=== PATIENT | female | born 1955 | race Caucasian/White ===

== ENCOUNTER 2017-08-25 17:38 | Emergency (ER) | payer SELFPAY ==
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
[2017-08-25 18:18] LABS: Hematocrit 42 % (35-47); Hemoglobin 13.9 g/dl (12.0-16.0); Mean Corpuscular HGB Conc 33 g/dl (31-36); Mean Corpuscular Hemoglobin 30 pg (27-31); Mean Corpuscular Volume 89 fL (80-97); Mean Platelet Volume 9 um3 (7.4-10.4); Red Blood Count 4.67 10^6/ul (4.0-5.4); Red Cell Distribution Width 14 % (10.5-15); White Blood Count 6.3 10^3/ul (3.5-10.8)
[2017-08-25 18:35] LABS: Albumin 4.2 g/dL (3.2-5.2); BUN/Creatinine Ratio 13.6 (8-20); Calcium 9.7 mg/dL (8.6-10.3); EGFR African American 83.7 (>60); EGFR Non-African American 65.1 (>60); Globulin 3.3 g/dL (2-4); Potassium 3.8 mmol/L (3.5-5.0); Total Bilirubin 0.5 mg/dL (0.2-1.0); Total Protein 7.5 g/dL (6.4-8.9)
[2017-08-25] MEDS ORDERED: Iohexol 300* (CONTRAST) 10 ML SDV IV ONE (18:38)
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
[2017-08-25] MEDS ORDERED: Cyclobenzaprine TAB* 10 MG PO ONE (20:22)
[2017-08-25] MEDS ORDERED: Acetaminophen TAB* 325 MG PO ONE (20:34)
[2017-08-25] MEDS ORDERED: NS 0.9% 1000 ML* 1,000 ML IV ONE (20:35)
[2017-08-25] MEDS ORDERED: Acetaminophen TAB* 325 MG ONE (20:38)
[2017-08-25 21:53] VITALS: BP 114/60
== END 2017-08-25 21:59 | disposition home or self-care (01) ==
LOC: ED 17:38
DX: S42.002A Fracture of unspecified part of left clavicle, initial encounter for closed fracture (principal); Z87.891 Personal history of nicotine dependence; V03.99XA Pedestrian with other conveyance injured in collision with car, pick-up truck or van, unspecified whether traffic or nontraffic accident, initial encounter; Y93.55 Activity, bike riding
CPT/HCPCS: 36415; 70450; 71260; 72125; 74177; 80053; 85025; 96360; 96374; 99285; A9270-GY; Q9967

== ENCOUNTER 2017-11-10 15:53 | Emergency (ER) | payer BC, OTHER ==
[2017-11-10] MEDS ORDERED: NS 0.9% 1000 ML*IV.FLUID IV ONE (17:47)
[2017-11-10] MEDS ORDERED: Ondansetron INJ* 2 MG/ML VIAL IV ONE (17:48)
[2017-11-10] MEDS ORDERED: Acetaminophen TAB* 325 MG PO ONE (17:48)
--- NOTE | 2017-11-10 18:17 | RAD ---
INDICATION: Cough COMPARISON: None TECHNIQUE: PA and lateral dual-energy views were obtained. FINDINGS: Bones/Soft Tissues: There are no acute bony findings. Cardiomediastinal: The cardiomediastinal silhouette is normal. Lungs: There are no infiltrates. Pleura: There are no pleural effusions. Other: None IMPRESSION: NO ACTIVE DISEASE.
[2017-11-10 18:30] LABS: Hematocrit 42 % (35-47); Hemoglobin 14.2 g/dl (12.0-16.0); Mean Corpuscular HGB Conc 34 g/dl (31-36); Mean Corpuscular Hemoglobin 30 pg (27-31); Mean Corpuscular Volume 89 fL (80-97); Mean Platelet Volume 9 um3 (7.4-10.4); Red Blood Count 4.74 10^6/ul (4.0-5.4); Red Cell Distribution Width 14 % (10.5-15)
[2017-11-10 18:43] LABS: Albumin 4.2 g/dL (3.2-5.2); BUN/Creatinine Ratio 15.3 (8-20); Calcium 9.1 mg/dL (8.6-10.3); EGFR African American 105.6 (>60); EGFR Non-African American 82.1 (>60); Globulin 3.3 g/dL (2-4); Potassium 3.7 mmol/L (3.5-5.0); Total Bilirubin 0.6 mg/dL (0.2-1.0); Total Protein 7.5 g/dL (6.4-8.9)
--- NOTE | 2017-11-10 19:03 | ED ---
HPI Febrile Illness - HPI Summary HPI Summary: 62F presents with fever, sore throat, and cough for two days. She states she feels nauseous so she has not taken anything for her fever. She was seen by her primary and sent here for the fever. no one else is sick. She admits to sinus congestion. She denies any chest pain or SOB. no abdominal pain, vomiting, or diarrhea. she admits to headache but denies any neck stiffness or photophobia. She is still able to swallow. no medical history. - History of Current Complaint Chief Complaint: EDGeneral Time Seen by Provider: 11/10/17 17:31 Pain Intensity: 7 - Allergy/Home Medications Allergies/Adverse Reactions: Allergies Allergy/AdvReac Type Severity Reaction Status Date / Time Ciprofloxacin Allergy Hives Verified 11/10/17 16:08 peanuts Allergy Severe Anaphylatic Uncoded 11/10/17 16:08 Shock PMH/Surg Hx/FS Hx/Imm Hx Endocrine/Hematology History: Reports: Other Endocrine/Hematological Disorders - cholecystectomy 2010 Denies: Hx Anticoagulant Therapy, Hx Diabetes - Surgical History Surgery Procedure, Year, and Place: cholecystectomy 2010 Infectious Disease History: No Infectious Disease History: Denies: Traveled Outside the [place] in Last 30 Days - Family History Known Family History: Positive: Hypertension - Social History Alcohol Use: Rare Alcohol Amount: 4 per year Substance Use Type: Reports: None Smoking Status (MU): Former Smoker Type: Cigarettes Amount Used/How Often: 1PPD Length of Time of Smoking/Using Tobacco: 15 years Have You Smoked in the Last Year: No Review of Systems Positive: Fever Positive: Sore Throat Negative: Chest Pain Positive: Cough. Negative: Shortness Of Breath All Other Systems Reviewed And Are Negative: Yes Physical Exam Triage Information Reviewed: Yes Vital Signs On Initial Exam: Initial Vitals Temp Pulse Resp BP Pulse Ox 100.0 F 102 20 104/73 97 11/10/17 16:05 11/10/17 16:05 11/10/17 16:05 11/10/17 16:05 11/10/17 16:05 Vital Signs Reviewed: Yes Appearance: Positive: Ill-Appearing Skin: Positive: Warm, Dry Head/Face: Positive: Normal Head/Face Inspection Eyes: Positive: Normal, EOMI, MARLINE, Conjunctiva Clear ENT: Positive: Normal ENT inspection, Pharyngeal erythema, TMs normal, Uvula midline, Other - soft palate symmetric. Negative: Tonsillar swelling, Tonsillar exudate, Trismus, Muffled voice Neck: Positive: Supple, Nontender, No Lymphadenopathy Respiratory/Lung Sounds: Positive: Clear to Auscultation, Breath Sounds Present Cardiovascular: Positive: Normal, RRR Abdomen Description: Positive: Nontender, Soft Bowel Sounds: Positive: Present Musculoskeletal: Positive: Normal Neurological: Positive: Normal Psychiatric: Positive: Normal - Melissa Coma Scale Coma Scale Total: 15 Diagnostics - Vital Signs Vital Signs Temp Pulse Resp BP Pulse Ox 11/10/17 17:58 96 11/10/17 17:38 98 96 11/10/17 17:37 106/66 11/10/17 16:05 100.0 F 102 20 104/73 97 - Laboratory Lab Results: Lab Results 11/10/17 11/10/17 11/10/17 Range/Units 18:04 18:14 18:17 WBC (3.5-10.8) 10^3/ul RBC (4.0-5.4) 10^6/ul Hgb (12.0-16.0) g/dl Hct (35-47) % MCV (80-97) fL MCH (27-31) pg MCHC (31-36) g/dl RDW (10.5-15) % Plt Count (150-450) 10^3/ul MPV (7.4-10.4) um3 Neut % (Auto) (38-83) % Lymph % (Auto) (25-47) % [place] % (Auto) (1-9) % Eos % (Auto) (0-6) % Baso % (Auto) (0-2) % Absolute Neuts (auto) (1.5-7.7) 10^3/ul Absolute Lymphs (auto) (1.0-4.8) 10^3/ul Absolute Monos (auto) (0-0.8) 10^3/ul Absolute Eos (auto) (0-0.6) 10^3/ul Absolute Basos (auto) (0-0.2) 10^3/ul Absolute Nucleated RBC 10^3/ul Nucleated RBC % INR (Anticoag Therapy) 0.99 (0.77-1.02) APTT 32.4 (26.0-36.3) seconds Sodium (133-145) mmol/L Potassium (3.5-5.0) mmol/L Chloride (101-111) mmol/L Carbon Dioxide (22-32) mmol/L Anion Gap (2-11) mmol/L BUN (6-24) mg/dL Creatinine (0.51-0.95) mg/dL Est GFR ( Amer) (>60) Est GFR (Non-Af Amer) (>60) BUN/Creatinine Ratio (8-20) Glucose (70-100) mg/dL Lactic Acid (0.5-2.0) mmol/L Calcium (8.6-10.3) mg/dL Total Bilirubin (0.2-1.0) mg/dL AST (13-39) U/L ALT (7-52) U/L Alkaline Phosphatase (34-104) U/L Total Protein (6.4-8.9) g/dL Albumin (3.2-5.2) g/dL Globulin (2-4) g/dL Albumin/Globulin Ratio (1-3) Influenza A (Rapid) Negative (Negative) Influenza B (Rapid) Negative (Negative) Group A Strep Rapid Negative (Negative) 11/10/17 11/10/17 11/10/17 Range/Units 18:17 18:17 18:17 WBC 11.0 H (3.5-10.8) 10^3/ul RBC 4.74 (4.0-5.4) 10^6/ul Hgb 14.2 (12.0-16.0) g/dl Hct 42 (35-47) % MCV 89 (80-97) fL MCH 30 (27-31) pg MCHC 34 (31-36) g/dl RDW 14 (10.5-15) % Plt Count 206 (150-450) 10^3/ul MPV 9 (7.4-10.4) um3 Neut % (Auto) 81.6 (38-83) % Lymph % (Auto) 13.1 L (25-47) % [place] % (Auto) 4.6 (1-9) % Eos % (Auto) 0.1 (0-6) % Baso % (Auto) 0.6 (0-2) % Absolute Neuts (auto) 9.0 H (1.5-7.7) 10^3/ul Absolute Lymphs (auto) 1.4 (1.0-4.8) 10^3/ul Absolute Monos (auto) 0.5 (0-0.8) 10^3/ul Absolute Eos (auto) 0 (0-0.6) 10^3/ul Absolute Basos (auto) 0.1 (0-0.2) 10^3/ul Absolute Nucleated RBC 0 10^3/ul Nucleated RBC % 0 INR (Anticoag Therapy) (0.77-1.02) APTT (26.0-36.3) seconds Sodium 134 (133-145) mmol/L Potassium 3.7 (3.5-5.0) mmol/L Chloride 104 (101-111) mmol/L Carbon Dioxide 23 (22-32) mmol/L Anion Gap 7 (2-11) mmol/L BUN 11 (6-24) mg/dL Creatinine 0.72 (0.51-0.95) mg/dL Est GFR ( Amer) 105.6 (>60) Est GFR (Non-Af Amer) 82.1 (>60) BUN/Creatinine Ratio 15.3 (8-20) Glucose 136 H (70-100) mg/dL Lactic Acid 0.9 (0.5-2.0) mmol/L Calcium 9.1 (8.6-10.3) mg/dL Total Bilirubin 0.60 (0.2-1.0) mg/dL AST 34 (13-39) U/L ALT 25 (7-52) U/L Alkaline Phosphatase 87 (34-104) U/L Total Protein 7.5 (6.4-8.9) g/dL Albumin 4.2 (3.2-5.2) g/dL Globulin 3.3 (2-4) g/dL Albumin/Globulin Ratio 1.3 (1-3) Influenza A (Rapid) (Negative) Influenza B (Rapid) (Negative) Group A Strep Rapid (Negative) Result Diagrams: 18 18:17 11/10/17 18:17 Lab Statement: Any lab studies that have been ordered have been reviewed, and results considered in the medical decision making process. - Radiology chest Xray Interpretation: No Acute Changes Radiology Interpretation Completed By: Radiologist Course/Dx - Course Course Of Treatment: 62F presents with fever, sore throat, and cough for two days. She states she feels nauseous so she has not taken anything for her fever. She was seen by her primary and sent here for the fever. no one else is sick. She admits to sinus congestion. She denies any chest pain or SOB. no abdominal pain, vomiting, or diarrhea. she admits to headache but denies any neck stiffness or photophobia. She is still able to swallow. no medical history. on exam pharynx red, uvula midline, soft palate symmetric. lungs CTA. labs wnl. flu neg, chest xray neg. patient understand and agrees with plan. - Febrile Illness Differential Diagnoses: Fever of Unknown Origin, Pneumonia, Viremia - Diagnoses Provider Diagnoses: Fever, Upper respiratory infection Discharge - Discharge Plan Condition: Good Disposition: HOME Prescriptions: Dexamethasone TAB* [Decadron TAB*] 4 mg PO DAILY #4 tab Magic Mouth Was-SEN/MAAL/LIDO* 5 ml SWISH SPIT QID #100 ml Ondansetron ODT TAB* [Zofran 4 MG Odt TAB*] 4 mg PO Q6H PRN #20 tab.odt PRN Reason: Nausea Patient Education Materials: Upper Respiratory Infection (ED) Referrals: Jacqui Trent MD [Primary Care Provider] - Additional Instructions: Magic mouthwash 5ml swish and spit can use 4x a day Take steroid once a day for 5 days starting tomorrow Take Tylenol or ibuprofen for fever every 6 hours Take zofran every 6 hours for nausea Can gargle salt water Follow up with primary within 5 days Return to ED if develop fever does not respond to Tylenol or ibuprofen, inability to swallow, difficulty breathing or any new or worsening symptoms
[2017-11-10] MEDS ORDERED: Dexamethasone TAB* 4 MG PO ONE (19:27)
[2017-11-10 19:36] VITALS: BP 107/64
== END 2017-11-10 19:44 | disposition home or self-care (01) ==
LOC: ED 15:53
DX: J06.9 Acute upper respiratory infection, unspecified (principal); R50.9 Fever, unspecified; Z88.1 Allergy status to other antibiotic agents; E34.9 Endocrine disorder, unspecified; D75.9 Disease of blood and blood-forming organs, unspecified; Z90.49 Acquired absence of other specified parts of digestive tract; Z87.891 Personal history of nicotine dependence
CPT/HCPCS: 36415; 71020; 80053; 83605; 85025; 85610; 85730; 87040; 87502; 87651; 96361; 96374; 99283; A9270-GY; J2405; J8540

== ENCOUNTER 2019-09-24 09:35 | Day surgery (SDC) | payer BC ==
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
--- OUTSIDE RECORDS SUMMARY | 2019-09-24 10:10 | XMS REPORT | Continuity of Care Document ---
:1955 External Reference #:[id number] Author Name Evelin Ruth N.P. (transmitted by agent of provider Taylor Gregory) Address [address], [place] [address] Care Team Providers Name Role Phone Jacqui Trent MD - Family Care Team Information Transportation Solutions Manager [phone] Medicine Problems Active Problems Provider Date Localized, primary osteoarthritis Eugene Eubanks MD Onset: 07/16/2019 Current tear of medial cartilage AND/OR meniscus Eugene Eubanks MD Onset: of knee Achilles tendinitis, left leg Eugene Eubanks MD Onset: 05/31/2019 Social History Type Date Description Comments Sex Unknown ETOH Use Denies alcohol use Tobacco Use Start: Unknown Patient has never smoked Recreational Drug Use Sporadically uses Marijuana Smoking Status Reviewed: 08/25/19 Patient has never smoked Exercise Type/Frequency Exercises regularly Allergies, Adverse Reactions, Alerts Active Allergies Reaction Severity Comments Date NKDA 05/12/2014 Opiates 03/27/2017 Medications Active Medications SIG Qnty Indications Ordering Date Provider Intrarosa insert one vaginal 28units Evelin Ruth N.P. 08/25/2019 6.5mg suppository nightly Insert ALL Day Allergy Unknown 10mg Tablets Calcium Unknown Multizyme Unknown Cataplex B12 Unknown Biosil Unknown Medications Administered in Office Medication SIG Qnty Indications Ordering Provider Date Depomedrol 40MG Demond Grigsby M.D. 06/04/2017 Injection Immunizations Description No Information Available Vital Signs Date Vital Result Comment 08/25/2019 1:48pm Height 66.5 inches 5'6.50" Weight 123.00 lb Heart Rate 68 /min BP Systolic 106 mmHg BP Diastolic 66 mmHg O2 % dC Oximetry 98 % BMI (Body Mass Index) 19.6 kg/m2 Last Menstrual Period [id number] 07/16/2019 3:26pm Height 66.5 inches 5'6.50" Weight 127.00 lb Heart Rate 70 /min BP Systolic 116 mmHg BP Diastolic 72 mmHg Body Temperature 97.0 F Pain Level 4 BMI (Body Mass Index) 20.2 kg/m2 Results Description No Information Available Procedures Description No Information Available Medical Devices Description No Information Available Encounters Type Date Location Provider Dx Diagnosis Office Visit 07/16/2019 [facility] Eugene Eubanks, S83.222A Prph tear of 3:30p at [place] medial meniscus, current injury, l knee, init M17.0 Bilateral primary osteoarthritis of knee M76.62 Achilles tendinitis, left leg Office Visit 05/31/2019 Karol Ramos76.62 Achilles 1:00p Orthopedics at tendinitis, left [place] leg Office Visit 04/29/2019 Jennifer De Leon S63.591D Other specified 8:00a [facility]oped[facility] at [facility] sprain of right [place] wrist, subsequent encounter S52.611K Disp fx of r ulna styloid pro, subs for clos fx w nonunion Office Visit 04/14/2019 Jennifer De Leon S63.591A Other specified 8:00a [facility]oped[facility] at [facility] sprain of right [place] wrist, initial encounter M25.531 Pain in right wrist Assessments Date Code Description Provider 07/16/2019 S83.222A Peripheral tear of medial meniscus, current Eugene Eubanks MD injury, left knee, initial encounter 07/16/2019 M17.0 Bilateral primary osteoarthritis of knee Eugene Eubanks MD 07/16/2019 M76.62 Achilles tendinitis, left leg Eugene Eubanks MD 05/31/2019 M76.62 Achilles tendinitis, left leg Eugene Eubanks MD 04/29/2019 S63.591D Other specified sprain of right wrist, Haley [facility] M.D. subsequent encounter 04/29/2019 S52.611K Disp fx of r ulna styloid pro, subs for Haley Dinh M.D. clos fx w nonunion 04/14/2019 S63.591A Other specified sprain of right wrist, Haley Dinh M.D. initial encounter 04/14/2019 M25.531 Pain in right wrist Haley Dinh M.D. Plan of Treatment Future Appointment(s):10/19/2019 4:00 pm - Evelin Ruth N.P. at [facility] [place]09/17/2019 8:00 am - Eugene Eubanks MD at [facility] Functional Status Description No Information Available Mental Status Description No Information Available Referrals Description No Information Available
--- NOTE | 2019-09-24 10:20 | ED ---
Abdominal Pain/Female - HPI Summary HPI Summary: 64 year old female presents to [facility] with a complaint of profuse vaginal bleeding starting this morning. Patient woke up and noticed blood all over her sheets and she noticed clumps of tissue expelled when she stood up. Patient had sexual intercourse last night, during which she reports using lubricants. She reports feeling anxious when she saw the blood. She denies any pain. She also mentioned that she has had chronic back pain and intermittent abdominal pain for the last several weeks. Her last period was 10 years ago. Patient has no PMHx of pelvic issues, DM, or HTN. PSHx of cholecystectomy. She rarely drinks alcohol. Former tobacco smoker. Does not do recreational drugs. Medications reviewed. Allergies noted. - History of Current Complaint Chief Complaint: EDVaginalBleeding Stated Complaint: HEMORAGING FROM VAGINA PER PT FRIEND Time Seen by Provider: 09/24/19 10:05 Hx Obtained From: Patient Hx Last Menstrual Period: 10 years ago ?: No Onset/Duration: Sudden Onset, Still Present, Worse Since - this morning Timing: Constant Severity Initially: Severe Severity Currently: Severe Pain Intensity: 0 Pain Scale Used: 0-10 Numeric Radiates: No Character: Not Applicable Aggravating Factor(s): Other: - sexual intercourse Alleviating Factor(s): Nothing Associated Signs and Symptoms: Positive: Vaginal Bleeding - Heavy, with clots Allergies/Adverse Reactions: Allergies Allergy/AdvReac Type Severity Reaction Status Date / Time ciprofloxacin Allergy Intermediate Hives Verified 09/24/19 13:21 oxycodone Allergy Hives Verified 09/24/19 12:15 peanuts Allergy Severe Anaphylatic Uncoded 09/24/19 12:15 Shock PMH/Surg Hx/FS Hx/Imm Hx Endocrine/Hematology History: Reports: Other Endocrine/Hematological Disorders - cholecystectomy 2010 Denies: Hx Anticoagulant Therapy, Hx Diabetes Cardiovascular History: Denies: Hx Hypertension, Hx Pacemaker/ICD History: Denies: Hx Renal Disease Sensory History: Denies: Hx Hearing Aid Psychiatric History: Denies: Hx Panic Disorder - Surgical History Surgery Procedure, Year, and Place: cholecystectomy 2010. MENISCUS SCRAPES BILATERAL KNEES Infectious Disease History: No Infectious Disease History: Denies: Traveled Outside the [place] in Last 30 Days - Family History Known Family History: Positive: Hypertension - Social History Alcohol Use: Rare Alcohol Amount: 4 per year Substance Use Type: Reports: None Smoking Status (MU): Former Smoker Type: Cigarettes Amount Used/How Often: 1PPD Length of Time of Smoking/Using Tobacco: 15 years Have You Smoked in the Last Year: No Review of Systems Negative: Fever Positive: Abdominal Pain - during the last several weeks, although none during time of arrival Positive: other - vaginal bleeding with clots Positive: Myalgia - back aches Positive: Anxious All Other Systems Reviewed And Are Negative: Yes Physical Exam - Summary Physical Exam Summary: Constitutional: Well-developed, Well-nourished, Alert. (-) Distressed Skin: Warm, Dry HENT: Normocephalic; Atraumatic Eyes: Conjunctiva normal Neck: Musculoskeletal ROM normal neck. (-) JVD, (-) Stridor, (-) Tracheal deviation Cardio: Rhythm regular, rate normal, Heart sounds normal; Intact distal pulses; Radial pulses are 2+ and symmetric. (-) Murmur Pulmonary/Chest wall: Effort normal. (-) Respiratory distress, (-) Wheezes, (-) Rales Abd: Soft, (-) tenderness, (-) Distension, (-) Guarding, (-) Rebound Musculoskeletal: (-) Edema Lymph: (-) Cervical adenopathy Neuro: Alert, Oriented x3 Psych: Mood and affect Normal Pelvic: Large amount of blood and clots in vaginal vault. 4cm laceration to left vaginal wall. Triage Information Reviewed: Yes Vital Signs On Initial Exam: Initial Vitals Temp Pulse Resp BP Pulse Ox 96.7 F 70 16 116/75 100 09/24/19 09:38 09/24/19 09:38 09/24/19 09:38 09/24/19 09:38 09/24/19 09:38 Vital Signs Reviewed: Yes Procedures - Sedation Patient Received Moderate/Deep Sedation with Procedure: No Diagnostics - Vital Signs Vital Signs Temp Pulse Resp BP Pulse Ox 09/24/19 10:01 60 14 104/69 98 09/24/19 10:00 61 20 100 09/24/19 09:40 65 11 116/75 100 09/24/19 09:38 96.7 F 70 16 116/75 100 - Laboratory Result Diagrams: 09/24/19 10:30 09/24/19 10:30 Lab Statement: Any lab studies that have been ordered have been reviewed, and results considered in the medical decision making process. Re-Evaluation - Re-Evaluation First Eval Re-Evaluation Time: 11:14 Change: Unchanged Comment: Large amount of blood in vaginal vault, active hemorrhaging. 4x4 gauze pads placed in vagina. 2 Re-Evaluation Time: 12:40 Change: Unchanged Comment: Buster present in room, going to take patient to operating room. Abdominal Pain Fem Course/Dx - Course Course Of Treatment: Patient is here with vaginal bleeding secondary to vaginal wall laceration sustained during intercourse last night. Patient is hemodynamically stable upon arrival but did have active hemorrhaging from her laceration. Her lacaeratio is not a suturable laceration by myself so LAUNCH OPERATOR was called. LAUNCH OPERATOR recommended packing the vagina and then they took her to the operating room for closure. - Diagnoses Provider Diagnoses: Laceration of vagina - Critical Care Time Critical Care Time: 30-74 min - 35min Discharge ED - Sign-Out/Discharge Documenting (check all that apply): Patient Departure - admit - Discharge Plan Condition: Stable Disposition: ADMITTED TO [facility] - Billing Disposition and Condition Condition: STABLE Disposition: Admitted to [facility] - Attestation Statements Document Initiated by Scribe: Yes Documenting Scribe: Wolfgang Daniels Provider For Whom Sari is Documenting (Include Credential): Dr. Nabeel Sun Scribnat Attestation: Wolfgang Huerta, scribed for Dr. Nabeel Sun on 09/24/19 at 1959. Scribe Documentation Reviewed: Yes Provider Attestation: The documentation as recorded by the emilyibWolfgang johns accurately reflects the service I personally performed and the decisions made by , Dr. Nabeel Sun Status of Scribe Document: Viewed
[2019-09-24 10:38] LABS: ABS Basophils 0.1 10^3/ul (0-0.2); ABS Eosinophils 0.2 10^3/ul (0-0.6); ABS Lymphocytes 1.7 10^3/ul (1.0-4.8); ABS Monocytes 0.5 10^3/ul (0-0.8); ABS Neutrophils 4.3 10^3/ul (1.5-7.7); Eosinophil % 2.5 %; Hematocrit 41 % (35-47); Hemoglobin 13.7 g/dL (12.0-16.0); Lymphocyte % 25.5 %; Mean Corpuscular HGB Conc 33 g/dL (31-36); Mean Corpuscular Hemoglobin 30 pg (27-31); Mean Corpuscular Volume 90 fL (80-97); Mean Platelet Volume 8.9 fL (7.4-10.4); Nucleated Red Blood Cells % 0.1; Platelet Count 206 10^3/uL (150-450); Red Blood Count 4.58 10^6 /uL (3.70-4.87); Red Cell Distribution Width 14 % (10-15); White Blood Count 6.8 10^3/uL (3.5-10.8)
[2019-09-24 10:50] LABS: Activated Partial Thrombo Time 35.9 seconds (26.0-38.0); INR 0.98 (0.82-1.09)
[2019-09-24 10:56] LABS: Albumin/Globulin Ratio 1.3 (1-3); Calcium 9.1 mg/dL (8.6-10.3); EGFR African American 79.3 (>60); EGFR Non-African American 65.6 (>60); Globulin 3.1 g/dL (2-4); Potassium 4.4 mmol/L (3.5-5.0); Total Bilirubin 0.5 mg/dL (0.2-1.0); Total Protein 7.1 g/dL (6.4-8.9)
[2019-09-24] MEDS ORDERED: NS 0.9% 1000 ML** 1,000 ML IV ONE (11:44)
[2019-09-24] MEDS ORDERED: Famotidine IV* 10 MG/ML 2 ML (20 mg) IV ONE (13:17)
[2019-09-24] MEDS ORDERED: Dexamethasone IV* 4 MG/ML 1 ML (4 MG) IV SLOW PU ONE (13:17)
[2019-09-24] MEDS ORDERED: Buffered Lidocaine 1% SYRIN* 1 ML/SYRINGE INTRADERM ONE (13:17)
--- NOTE | 2019-09-24 13:36 | HP ---
H&P (Free Text) History and Physical: CC: vaginal bleeding HPI: pt had intercourse for the first time in 15yrs last night. She then had it again this morning and afterwards when she got up noticed that there was a huge area of blood on the sheets and she continued to bleed. She denies any pain at all. She has been using intrarosa for one month in preparation. They also used lubrication. She says she was enjoying it so much that she didn't really notice any discomfort. 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 Exam: Gen: NAD Pelvic: blood clot dripping down her legs when beginning exam. 3 soaked gauze sponges removed from the vagina with active bleeding and clot. On speculum exam it was difficult to fully visualize the laceration due to pt discomfort and bleeding. On palpation the laceration could be felt posterior to the cervix about 3cm in length. Pt with tenderness when the laceration was touched. A: 64yo with vaginal laceration and significant bleeding, unable to repair in the ED P: Laceration repair with MAC and local anesthesia in the OR. Discussed plan with pt and she is agreeable.
[2019-09-24] MEDS ORDERED: Famotidine IV* 10 MG/ML 2 ML (20 mg) ONE (13:39)
[2019-09-24] MEDS ORDERED: Dexamethasone IV* 4 MG/ML 1 ML (4 MG) ONE (13:39)
[2019-09-24] MEDS ORDERED: Lactated Ringers 1000 ML Bag* 1,000 ML IV SCH (14:00)
[2019-09-24] MEDS ORDERED: Midazolam* 1 MG/ML 5 ML VIAL (5 MG) ONE (14:11)
[2019-09-24] MEDS ORDERED: fentaNYL* 50 MCG/ML 5 ML VIAL (250 MCG VIAL) ONE (14:11)
[2019-09-24] MEDS ORDERED: Ketorolac INJ* 30 MG/ML 1 ML VIAL ONE (14:12)
[2019-09-24] MEDS ORDERED: Ondansetron INJ* 2 MG/ML VIAL ONE ×2 (14:12→15:17)
[2019-09-24] MEDS ORDERED: Propofol* 10 MG/ML 20 ML BTL ONE (14:12)
[2019-09-24] MEDS ORDERED: Lidocaine 1% INJ* 10 MG/ML 30 ML SDV ONE (14:30)
[2019-09-24] MEDS ORDERED: Ondansetron INJ* 2 MG/ML VIAL IV PRN (15:10)
[2019-09-24] MEDS ORDERED: DiMENhydriNATE IV* 50 MG/ML VIAL IV PUSH PRN (15:10)
[2019-09-24] MEDS ORDERED: fentaNYL* 50 MCG/ML 2 ML VIAL (100 MCG VIAL) IV PRN (15:10)
[2019-09-24] MEDS ORDERED: Naloxone* 0.4 MG/ML 1 ML VIAL IV PRN (15:10)
[2019-09-24] MEDS ORDERED: oxyCODONE/Acetamin 5/325 MG* TAB PO PRN (15:10)
[2019-09-24] MEDS ORDERED: Scopolamine 1.5 mg* PATCH TRANSDERM PRN (15:10)
[2019-09-24] MEDS ORDERED: fentaNYL* 50 MCG/ML 2 ML VIAL (100 MCG VIAL) ONE (15:21)
[2019-09-24 20:22] VITALS: BP 90/55
--- NOTE | 2019-09-24 23:29 | OP ---
OPERATIVE NOTE: DATE OF OPERATION: 09/24/19 DATE OF : 55 SURGEON: Dr. Goins. ANESTHESIA: Monitored anesthesia care and local anesthesia PRE-OP DIAGNOSIS: Vaginal laceration with active bleeding POST-OP DIAGNOSIS: Vaginal laceration with active bleeding OPERATIVE PROCEDURE: Repair of vaginal laceration. ESTIMATED BLOOD LOSS: Minimal during procedure. FLUIDS: Crystalloid. DRAINS: None. FINDINGS: About 3 to 4 cm vaginal laceration along the left posterior vagina with a small area of active bleeding. INDICATIONS: The patient arrived in the emergency department after sudden onset of bleeding status post intercourse this morning. Last night was the first time she had intercourse in 15 years, though she had been using vaginal estrogen for a month in preparation. While in the emergency department, she soaked through multiple gauze and chux pads and after examination it was decided that it was too difficult to reach the laceration for repair without some anesthesia. DESCRIPTION OF PROCEDURE: After informed consent was signed, the patient was taken to the operating room where she was given monitored anesthesia care. She was prepped and draped in the dorsal lithotomy position with Amando stirrups. Exam under anesthesia revealed the previously mentioned findings of the laceration. It was injected with 1% lidocaine with epinephrine along the length of the laceration. 3-0 Vicryl suture was then used to suture the laceration along its length in a running fashion. One extra suture was placed in an area with some bleeding to provide adequate hemostasis. There was very minimal bleeding after the completion of the procedure. The speculum was then removed. The patient was moved to the stretcher and taken to recovery room in stable condition. [id number]/[facility] #: [id number] GRECIA
== END 2019-09-24 14:43 | disposition home or self-care (01) ==
LOC: ED 09:35 → OR 14:43
PROVIDERS: ATTEND Obstetrics & Gynecology
PROC: 0UQG7ZZ Repair Vagina, Via Natural or Artificial Opening (ICD-10-PCS; principal; 2019-09-24 15:30)
DX: S31.41XA Laceration without foreign body of vagina and vulva, initial encounter (principal); N93.0 Postcoital and contact bleeding; X58.XXXA Exposure to other specified factors, initial encounter; Y93.89 Activity, other specified; Y92.89 Other specified places as the place of occurrence of the external cause; Z90.49 Acquired absence of other specified parts of digestive tract; Z78.0 Asymptomatic menopausal state; Z79.899 Other long term (current) drug therapy; Z88.1 Allergy status to other antibiotic agents; Z88.5 Allergy status to narcotic agent; Z87.891 Personal history of nicotine dependence; Z91.010 Allergy to peanuts
CPT/HCPCS: 36415; 80053; 83605; 85025; 85610; 85730; 86850; 86900; 86901; 96361; 96374; 96375; 99284; J1100; J1885; J2250; J2405; J2704; J3010

== ENCOUNTER 2020-01-10 11:14 | Emergency (ER) | payer BC ==
--- OUTSIDE RECORDS SUMMARY | 2020-01-10 12:00 | XMS REPORT | Continuity of Care Document ---
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 08/02/2014 Intramuscular Injection B-12 Injection Jacqui Trent M.D. 07/27/2014 Injection Injection Subcutaneous Or Jacqui Trent M.D. 07/27/2014 Intramuscular Injection B-12 Injection Jacqui Trent M.D. 07/19/2014 Injection Injection Subcutaneous Or Jacqui Trent M.D. 07/19/2014 Intramuscular Injection B-12 Injection Vishnu Don M.D. 07/12/2014 Injection Injection Subcutaneous Or Vishnu Don M.D. 07/12/2014 Intramuscular Injection B-12 Injection Jeffery Garg-C 07/04/2014 Injection Injection Subcutaneous Or Richelle Morrow, Jeffery-Cat 07/04/2014 Intramuscular Injection B-12 Injection MARIAELENA North 06/23/2014 Injection Injection Subcutaneous Or MARIAELENA North 06/23/2014 Intramuscular Injection Injection Subcutaneous Or Arron Walter M.D. 02/10/2003 Intramuscular Injection Injection Subcutaneous Or Vishnu Don M.D. 01/27/2003 Intramuscular Injection TB Intradermal Test Venkat Sanchez M.D. 05/07/1999 Injection TB Intradermal Test Nurse, Nurse 07/04/1998 Injection Immunizations CPT Code Status Date Vaccine Lot # [id number] Given 09/18/2019 Influenza vac quadrivalent preservative free 6 [id number] months and up [id number] Given 08/17/2018 Influenza Vac, Quadrivalent, Slit Virus, Im [id number] Given 10/11/2015 Influenza Vac, Quadrivalent, Slit Virus, Im [id number] 18511 Given 09/19/2014 DO Not Use Split Influenza Virus Vaccine [id number] 93444 Given 09/11/2013 DO Not Use Split Influenza Virus Vaccine [id number] 68505 Given 03/11/2011 Tdap Tetanus, W Pertussis [id number] 07987 Given 08/09/2010 DO Not Use Split Influenza Virus Vaccine [id number] 67946 Given 08/12/2009 DO Not Use Split Influenza Virus Vaccine [id number] 73908 Given 07/08/2002 DT Immunization Vital Signs Date Vital Result Comment 12/23/2019 1:46pm BP Systolic 110 mmHg BP Diastolic 70 mmHg Heart Rate 68 /min Body Temperature 97.7 F Respiratory Rate 16 /min Height 65 inches 5'5" Weight 122.00 lb BMI (Body Mass Index) 20.3 kg/m2 09/21/2019 4:11pm BP Systolic 100 mmHg BP Diastolic 64 mmHg Heart Rate 62 /min Body Temperature 99.1 F Respiratory Rate 16 /min Height 65 inches 5'5" Weight 122.00 lb BMI (Body Mass Index) 20.3 kg/m2 Results Test Acquired Date Facility Test Result H/L Range Note CBC Auto Diff 09/24/2019 [facility] White Blood 6.8 10^3/uL Normal 3.5-10.8 Count Red Blood Count 4.58 10^6/uL Normal 3.70-4.87 Hemoglobin 13.7 g/dL Normal 12.0-16.0 Hematocrit 41 % Normal 35-47 Mean Corpuscular Volume 90 fL Normal 80-97 Mean Corpuscular Hemoglobin 30 pg Normal 27-31 Mean Corpuscular HGB Conc 33 g/dL Normal 31-36 Red Cell Distribution Width 14 % Normal 10-15 Platelet Count 206 10^3/uL Normal 150-450 Mean Platelet Volume 8.9 fL Normal 7.4-10.4 Abs Neutrophils 4.3 10^3/uL Normal 1.5-7.7 Abs Lymphocytes 1.7 10^3/uL Normal 1.0-4.8 Abs Monocytes 0.5 10^3/uL Normal 0-0.8 Abs Eosinophils 0.2 10^3/uL Normal 0-0.6 Abs Basophils 0.1 10^3/uL Normal 0-0.2 Abs Nucleated RBC 0.0 10^3/uL Granulocyte % 63.7 % Lymphocyte % 25.5 % Monocyte % 7.5 % Eosinophil % 2.5 % Basophil % 0.8 % Nucleated Red Blood Cells % 0.1 Inr/Protime 09/24/2019 [facility] Inr 0.98 Normal 0.82-1.09 1 Laboratory test 09/24/2019 [facility] Partial Thrombo 35.9 seconds Normal 26.0- 38.0 finding Time PTT Lactic Acid 1.0 mmol/L Normal 0.5-2.0 2 Comp Metabolic Panel 09/24/2019 [facility] Sodium 138 mmol/L Normal 135-145 Potassium 4.4 mmol/L Normal 3.5-5.0 Chloride 106 mmol/L Normal 101-111 Co2 Carbon Dioxide 26 mmol/L Normal 22-32 Anion Gap 6 mmol/L Normal 2-11 Glucose 93 mg/dL Normal 70-100 Blood Urea Nitrogen 20 mg/dL Normal 6-24 Creatinine 0.87 mg/dL Normal 0.51-0.95 BUN/Creatinine Ratio 23.0 High 8-20 Calcium 9.1 mg/dL Normal 8.6-10.3 Total Protein 7.1 g/dL Normal 6.4-8.9 Albumin 4.0 g/dL Normal 3.2-5.2 Globulin 3.1 g/dL Normal 2-4 Albumin/Globulin Ratio 1.3 Normal 1-3 Total Bilirubin 0.50 mg/dL Normal 0.2-1.0 Alkaline Phosphatase 73 U/L Normal 34-104 Alt 18 U/L Normal 7-52 Ast 26 U/L Normal 13-39 Egfr Non- 65.6 >60 Egfr 79.3 >60 3 Type & Screen 09/24/2019 [facility] Patient Blood Type O Positive Antibody Screen NEGATIVE Laboratory test finding 09/21/2019 [facility] Magnesium 2.1 mg/dL Normal 1.9- 2.7 4 Comp Metabolic Panel 09/21/2019 [facility] Sodium 140 mmol/L Normal 135-145 Potassium 4.7 mmol/L Normal 3.5-5.0 Chloride 106 mmol/L Normal 101-111 Co2 Carbon Dioxide 27 mmol/L Normal 22-32 Anion Gap 7 mmol/L Normal 2-11 Glucose 94 mg/dL Normal 70-100 Blood Urea Nitrogen 17 mg/dL Normal 6-24 Creatinine 0.95 mg/dL Normal 0.51-0.95 BUN/Creatinine Ratio 17.9 Normal 8-20 Calcium 9.9 mg/dL Normal 8.6-10.3 Total Protein 7.0 g/dL Normal 6.4-8.9 Albumin 4.2 g/dL Normal 3.2-5.2 Globulin 2.8 g/dL Normal 2-4 Albumin/Globulin Ratio 1.5 Normal 1-3 Total Bilirubin 0.50 mg/dL Normal 0.2-1.0 Alkaline Phosphatase 81 U/L Normal 34-104 Alt 20 U/L Normal 7-52 Ast 29 U/L Normal 13-39 Egfr Non- 59.2 >60 Egfr 71.7 >60 5 Laboratory test 09/21/2019 [facility] [place]) Vitamin B-12 825 pg/mL 230-1050 finding CBC Electronic ([facility] 09/21/2019 [facility] WBC 5.67 4.0-10.0 New) (607)- - RBC 4.53 3.93-6.0 Hemoglobin (Fma/CMC/CTX) 13.4 g/dL 12.0-17.0 Hematocrit (Fma/CMC/CTX) 41.5 % 35.0-50.0 Mean Corpuscular Vol 91.6 fL 80-95 Mean Corpuscular Hemoglobin 29.6 pg 25.6-32.2 Mean Corpuscular Hemo Concen 32.3 g/dL 32.2-36.0 Platelets 217 10^3/ul 163-400 RDW-CV 12.9 11.6-14.4 Mean Platelet Volume 10.3 fL 8.0-12.4 Absolute Neutrophils BLD 2.54 1.56-6.13 Absolute Lymphocytes 2.36 1.18-3.74 Absolute Monocytes BLD Auto 0.50 0.24-0.82 Absolute Eos Blood 0.23 0.04-0.54 Absolute Basophils 0.04 0.01-0.08 Neutrophil % 44.8 % 34.0-70.0 Lymph% 41.6 % 20.0-52.0 Monocytes % 8.8 % 5.0-12.0 Eos % 4.1 % 0.7-7.0 Basophil% 0.7 % 0-1.2 1 Standard intensity warfarin therapeutic range: 2.0-3.0 High intensity warfarin therapeutic range: 2.5-3.5 2 [facility] Severe Sepsis and Septic Shock Management Bundle Measure requires all lactic acids initially measuring >2.0 mmol/L be repeated. 3 Because ethnic data is not always readily available, this report includes an eGFR for both -Americans and non- Americans. The National Kidney Disease Education Program (NKDEP) does not endorse the use of the MDRD equation for patients that are not between the ages of 18 and 70, are , have extremes of body size, muscle mass, or nutritional status, or are non- or non-. According to the National Kidney Foundation, irrespective of diagnosis, the stage of the disease is based on the level of kidney function: Stage Description GFR(mL/min/1.73 m(2)) 1 Kidney damage with normal or decreased GFR 90 2 Kidney damage with mild decrease in GFR 60-89 3 Moderate decrease in GFR 30-59 4 Severe decrease in GFR 15-29 5 Kidney failure <15 (or dialysis) 4 [id number] 1 sst 5 Because ethnic data is not always readily available, this report includes an eGFR for both -Americans and non- Americans. The National Kidney Disease Education Program (NKDEP) does not endorse the use of the MDRD equation for patients that are not between the ages of 18 and 70, are , have extremes of body size, muscle mass, or nutritional status, or are non- or non-. According to the National Kidney Foundation, irrespective of diagnosis, the stage of the disease is based on the level of kidney function: Stage Description GFR(mL/min/1.73 m(2)) 1 Kidney damage with normal or decreased GFR 90 2 Kidney damage with mild decrease in GFR 60-89 3 Moderate decrease in GFR 30-59 4 Severe decrease in GFR 15-29 5 Kidney failure <15 (or dialysis) Procedures Date Code Description Status 12/24/2018 [id number] Mammogram Completed 01/26/2018 [id number] Colonoscopy Completed 12/18/2017 [id number] Mammogram Completed 09/12/2016 [id number] Mammogram Completed 09/11/2015 [id number] Mammogram Completed 09/08/2014 [id number] Mammogram Completed 09/07/2013 [id number] Mammogram Completed 12/11/2012 [id number] Colonoscopy Completed 01/14/2012 [id number] Mammogram Completed 09/19/2010 [id number] Mammogram Completed 09/18/2009 [id number] Mammogram Completed 07/15/2008 [id number] Mammogram Completed 05/05/2007 [id number] Mammogram Completed 10/24/2005 [id number] Colonoscopy Completed Medical Devices Description No Information Available Encounters Type Date Location Provider Dx Diagnosis Office Visit 09/21/2019 Main Office Lissette Hendricks M62.831 Muscle spasm of 4:00p JAIME Munoz calf M62.838 Other muscle spasm D51.9 Vitamin B12 deficiency anemia, unspecified Assessments Date Code Description Provider 12/23/2019 N39.0 Urinary tract infection, site not specified Janel Sims NP 12/23/2019 N76.0 Acute vaginitis Janel Sims NP 09/21/2019 M62.831 Muscle spasm of calf Lissette Munoz, JAIME 09/21/2019 M62.838 Other muscle spasm Lissette Munoz NP 09/21/2019 D51.9 Vitamin B12 deficiency anemia, unspecified Lissette Munoz, JAIME 09/18/2019 Z23 Encounter for immunization Jacqui Trent M.D. Plan of Treatment 12/23/2019 - Janel Sims NPN39.0 Urinary tract infection, site not specifiedNew Medication:Nitrofurantoin Monohydrate/Macrocrystals 100 mg - take 1 capsule by mouth twice a day for 5 daysNew Labs:Ua - Micro (Fma), Ordered: Comments:If you are not improved within 48 hours please call or write to let me know.N76.0 Acute vaginitisNew Labs:Nuswab VG, Ordered: AllComments:1. Patient has been queried about patient's goals/preferences and functional/lifestyle goals at relevant visits. If relevant, describe: Has been discussed, noted above2. Treatment goals as explainedto the patient: see above3. Are there barriers to meeting treatment goals? Yes If Yes, please describe: Barriers include possible insurance limits, disease process, and difficulty with lifestyle changes4. Self-Management goals as described to the patient: Yes, see above As always, we strongly encourage a healthy diet and making physical activity a part of your every day life. If you have questions about how or where to start, please contact the office. Functional Status Description No Information Available Mental Status Description No Information Available Referrals Description No Information Available
--- NOTE | 2020-01-10 12:03 | ED ---
HPI Chest Pain - HPI Summary HPI Summary: The patient is a 64 y/o F presenting to [facility] with a chief complaint of traumatic lower left anterior chest wall pain onset a few days ago. She reports that she was participating in contact improv, which is a form of dancing using and relying on the bodyweights of her partners. During the routine, everyone ended up in a hog pile, and someone heavier stepped on her chest, and she heard a cracking noise. She has since been experiencing L chest well pain. She endorses mild SOB 2/2 lawrence as she feels unable to take full respirations. Symptoms rated 5/10 in severity. Aching pain is aggravated with lying on the left side, movement, and deep respirations, and it is alleviated with lying on her back. She has taken Ibuprofen for mild relief of the pain. PMHx: cholecystectomy. Former smoker, rare EtOH, no substance use. Medications reviewed. Allergies noted. - History of Current Complaint Chief Complaint: EDChestWallPain Time Seen by Provider: 01/10/20 11:38 Hx Obtained From: Patient Hx Last Menstrual Period: 10 years ago Onset/Duration: Started Days Ago, Still Present Timing: Constant Initial Severity: Moderate Current Severity: Moderate Pain Intensity: 5 Pain Scale Used: 0-10 Numeric Chest Pain Location: Left Anterior - lower chest wall Chest Pain Radiates: No Character: Dull/Aching Aggravating Factor(s): Movement, Deep Breaths, Other: - lying on left side Alleviating Factor(s): OTC Meds Associated Signs and Symptoms: Positive: Chest Pain - lower left anterior chest wall, Shortness of Breath - mild - Allergy/Home Medications Allergies/Adverse Reactions: Allergies Allergy/AdvReac Type Severity Reaction Status Date / Time ciprofloxacin Allergy Intermediate Hives Verified 09/24/19 13:21 oxycodone Allergy Hives Verified 09/24/19 12:15 peanuts Allergy Severe Anaphylatic Uncoded 09/24/19 12:15 Shock Home Medications: Home Medications Ibuprofen TAB* [Advil TAB*] 200 mg PO Q6H PRN 01/10/20 [History Confirmed ] Joint Flex 1 tab PO DAILY 01/10/20 [History Confirmed 01/10/20] Methylsulfonylmethane [MSM] 1,000 mg PO DAILY 01/10/20 [History Confirmed ] Multizyme 1 tab PO DAILY 01/10/20 [History Confirmed 01/10/20] [place]-3 Fatty Acids (Nf) [Fish Oil (NF)] 1,000 mg PO DAILY 01/10/20 [History Confirmed 01/10/20] PMH/Surg Hx/FS Hx/Imm Hx Endocrine/Hematology History: Reports: Other Endocrine/Hematological Disorders - cholecystectomy 2010 Denies: Hx Anticoagulant Therapy, Hx Diabetes Cardiovascular History: Denies: Hx Hypertension, Hx Pacemaker/ICD GI History: Reports: Hx Gall Bladder Disease - cholecystectomy History: Denies: Hx Renal Disease Sensory History: Denies: Hx Hearing Aid Psychiatric History: Denies: Hx Panic Disorder - Surgical History Surgical History: Yes Surgery Procedure, Year, and Place: cholecystectomy 2010. MENISCUS SCRAPES BILATERAL KNEES Infectious Disease History: No Infectious Disease History: Denies: Traveled Outside the [place] in Last 30 Days - Family History Known Family History: Positive: Hypertension - Social History Alcohol Use: Rare Alcohol Amount: 4 per year Hx Substance Use: No Substance Use Type: Reports: None Hx Tobacco Use: Yes Smoking Status (MU): Former Smoker Type: Cigarettes Amount Used/How Often: 1PPD Length of Time of Smoking/Using Tobacco: 15 years Have You Smoked in the Last Year: No Review of Systems Positive: Chest Pain - left chest wall, lower anterior Positive: Shortness Of Breath All Other Systems Reviewed And Are Negative: Yes Physical Exam - Summary Physical Exam Summary: Constitutional: Well-developed, Well-nourished, Alert. (-) Distressed Skin: Warm, Dry HENT: Normocephalic; Atraumatic Eyes: Conjunctiva normal Neck: Musculoskeletal ROM normal neck. (-) JVD, (-) Stridor, (-) Nuchal rigidity Cardio: Rhythm regular, rate normal, Heart sounds normal; Intact distal pulses; Radial pulses are 2+ and symmetric. (-) Murmur Pulmonary/Chest wall: Left-sided anterior lower rib pain. Effort normal. (-) Respiratory distress, (-) Wheezes, (-) Rales Abd: Soft, (-) tenderness, (-) Distension, (-) Guarding, (-) Rebound Musculoskeletal: (-) Edema Lymph: (-) Cervical adenopathy Neuro: Alert, Oriented x3 Psych: Mood and affect Normal Triage Information Reviewed: Yes Vital Signs On Initial Exam: Initial Vitals Temp Pulse Resp BP Pulse Ox 98.1 F 72 18 130/79 99 01/10/20 11:16 01/10/20 11:16 01/10/20 11:16 01/10/20 11:16 01/10/20 11:16 Vital Signs Reviewed: Yes Procedures - Sedation Patient Received Moderate/Deep Sedation with Procedure: No Diagnostics - Vital Signs Vital Signs Temp Pulse Resp BP Pulse Ox 01/10/20 11:16 98.1 F 72 18 130/79 99 - Laboratory Lab Statement: Any lab studies that have been ordered have been reviewed, and results considered in the medical decision making process. - Radiology CXR Radiology Interpretation Completed By: Radiologist Summary of Radiographic Findings: Impression: No active cardiopulmonary disease. ED physician has reviewed this report. - EKG 1122 Cardiac Rate: Bradycardia - 55 BPM EKG Rhythm: Sinus Bradycardia Summary of EKG Findings: An EKG at 1122 reveals sinus bradycardia at radte of 55 BPM, nml axis, nml intervals. No STEMI. No acute changes. ED physician has reviewed and interpreted this EKG. Re-Evaluation - Re-Evaluation First Eval Re-Evaluation Time: 12:35 Comment: Discussed results and plan for d/c Chest Pain Course/Dx - Course Course Of Treatment: 64 y/o F p/w L sided rib pain after fall. - VSS NAD. PE w L sided rib tenderness. Given pain control. XR w/o fracture. Suspect contusion. - Diagnoses Provider Diagnoses: Contusion of rib on left side Discharge ED - Sign-Out/Discharge Documenting (check all that apply): Patient Departure - Patient will be discharged home. - Discharge Plan Condition: Stable Disposition: HOME Prescriptions: Ibuprofen TAB* [Motrin TAB* 800 MG] 800 mg PO TID PRN 10 Days #30 tab PRN Reason: Pain - Moderate Patient Education Materials: Rib Contusion (ED) Referrals: Jacqui Trent MD [Primary Care Provider] - 3 Days Additional Instructions: You were seen in the emergency department for rib pain. Your Xray didnt show any broken bones. You can take Motrin for pain. You can buy [id number] lidocaine patches. Please follow up with your primary care doctor in the next 2-3 days and return to the emergency department for worsening pain, trouble breathing, chest pain or concerning symptoms. It was a pleasure taking care of you today. - Billing Disposition and Condition Condition: STABLE Disposition: Home - Attestation Statements Document Initiated by Sari: Yes Documenting Scribe: Emily Dyer Provider For Whom Sari is Documenting (Include Credential): Dr. Shant Flores MD Scribe Attestation: IEmily, scribed for Dr. Shant Flores MD on 01/10/20 at 1910. Scribe Documentation Reviewed: Yes Provider Attestation: The documentation as recorded by the Emily george accurately reflects the service I personally performed and the decisions made by me, Dr. Shant Flores MD Status of Scribe Document: Viewed
[2020-01-10] MEDS ORDERED: oxyCODONE/Acetamin 5/325 MG* TAB PO ONE ×2 (12:17→12:36)
[2020-01-10] MEDS ORDERED: Lidocaine PATCH 5%* 1 PATCH TRANSDERM SCH (12:32)
[2020-01-10 12:52] VITALS: BP 105/68
[2020-01-10] MEDS ORDERED: Lidocaine Patch REMOVE* 1 NOTE MISC SCH ×2 (21:00)
== END 2020-01-10 12:50 | disposition home or self-care (01) ==
LOC: ED 11:14
DX: S20.212A Contusion of left front wall of thorax, initial encounter (principal); W50.0XXA Accidental hit or strike by another person, initial encounter; Y93.41 Activity, dancing; Y92.9 Unspecified place or not applicable; R00.1 Bradycardia, unspecified; Z88.1 Allergy status to other antibiotic agents; Z88.5 Allergy status to narcotic agent; Z91.010 Allergy to peanuts; Z87.891 Personal history of nicotine dependence
CPT/HCPCS: 71046; 93005; 99282; A9270-GY